=== PATIENT | male | born 1985 | race Caucasian/White ===

== ENCOUNTER 2018-02-27 11:51 | Emergency (ER) | payer OTHER ==
[~2018-02-27] VITALS: Ht 182.9 cm; Wt 93.0 kg
[2018-02-27] MEDS ORDERED: ACETAMINOPHEN-1 EAC1 PO (14:02)
[2018-02-27] MEDS ORDERED: PHENERGAN 25 MG25 M1 PO (14:02)
[2018-02-27 14:20] VITALS: BP 135/76
== END 2018-02-27 14:20 | disposition home or self-care (01) ==
LOC: M.ERS 11:51
DX: S16.1XXA Strain of muscle, fascia and tendon at neck level, initial encounter (principal); R51 Headache; V43.52XA Car driver injured in collision with other type car in traffic accident, initial encounter; Y93.I9 Activity, other involving external motion; Y92.89 Other specified places as the place of occurrence of the external cause; Y99.8 Other external cause status